=== PATIENT | male | born 1990 | race Asian ===

== ENCOUNTER 2016-10-04 11:30 | Inpatient (IN) | payer MEDICAID, OTHER ==
[~2016-10-04] VITALS: Ht 167.6 cm; Wt 83.3 kg
[~2016-10-04 11:30] MED LIST: CITA20TA9 PO; DIVA250T25 PO; RISP.5 PO
[2016-10-04 12:23] LABS: BASOPHILS % (AUTO) 0.5 % (0.0-2.0); EOSINOPHILS % (AUTO) 0.4 % (1.0-6.0); HEMATOCRIT 48.4 % (41-53); HEMOGLOBIN 15.9 g/dL (13.5-17.5); LYMPHOCYTES # (AUTO) 1.4 K/uL (1.0-4.8); LYMPHOCYTES % (AUTO) 20.7 % (22.0-44.0); MEAN CORPUSCULAR HGB CONC 32.8 G/dL (31.0-37.0); MEAN CORPUSCULAR VOLUME 88 fL (80-100); MONOCYTES # (AUTO) 0.3 K/uL (0.1-1.0); MONOCYTES % (AUTO) 4.6 % (2.0-9.0); NEUTROPHILS # (AUTO) 4.8 K/uL (1.8-7.7); NEUTROPHILS % (AUTO) 73.8 % (40.0-70.0); PLATELET COUNT (AUTO) 270 K/uL (150-450); RED BLOOD CELL COUNT(AUTO) 5.49 MIL/uL (4.50-5.90); RED CELL DISTRIBUTION WIDTH 12.7 % (11.5-14.5); WHITE BLOOD COUNT (AUTO) 6.5 K/uL (4.5-11.0)
[2016-10-04 12:40] LABS: ALANINE AMINOTRANSFERASE 32 U/L (12-78); ALBUMIN 4.3 g/dL (3.4-5.0); ANION GAP 13 mmol/L (8-16); ASPARTATE AMINOTRANSFERASE 17 U/L (15-37); BILIRUBIN,TOTAL 0.5 mg/dL (0.1-1.0); CARBON DIOXIDE 25 mmol/L (22-29); CHLORIDE 103 mmol/L (98-107); CREATININE 0.91 mg/dL (0.60-1.30); GLOMERULAR FILTR. RATE CALC > 60 mL/min (>60); POTASSIUM 3.9 mmol/L (3.5-5.1); SODIUM SERUM 141 mmol/L (136-145); TOTAL PROTEIN, SERUM 7.8 g/dL (6.4-8.2); UREA NITROGEN, BLOOD 12 mg/dL (7-18)
[2016-10-04] MEDS ORDERED: LORazepam 2 MG TABLET PO ONE ×2 (13:00→15:15)
[2016-10-04] MEDS ORDERED: ACETAMINOPHEN 325 MG TABLET PO ONE (15:15)
[2016-10-04] MEDS ORDERED: ZOLPIDEM TARTRATE 10 MG TABLET PO PRN (15:15)
[2016-10-04] MEDS ORDERED: HALOPERIDOL 5 MG TABLET PO PRN (15:15)
[2016-10-04] MEDS ORDERED: LORazepam 2 MG TABLET PO PRN (15:15)
[2016-10-04 20:32] LABS: APPEARANCE,URINE CLEAR (CLEAR); GLUCOSE, URINE (UA) NEGATIVE (NEGATIVE); KETONES,URINE NEGATIVE (NEGATIVE); LEUKOCYTE ESTERASE ,URINE NEGATIVE (NEGATIVE); OCCULT BLOOD,URINE NEGATIVE (NEGATIVE); PH,URINE 7.5 (5.0-8.0); PROTEIN,URINE NEGATIVE (NEGATIVE)
[2016-10-04 20:35] LABS: ADD UA MICROSCOPIC NO
[2016-10-04 20:45] VITALS: BP 127/86
[2016-10-04] MEDS ORDERED: INFLUENZA VIRUS VACCINE QVS 2016-17 (3YR+)/PF 60 MCG/0.5 ML SYRINGE IM ONE (22:15)
[2016-10-05 08:09] VITALS: BP 132/83
[2016-10-05] MEDS ORDERED: PETROLATUM,WHITE 71 GM JELLY TP PRN (09:15)
[2016-10-05] MEDS ORDERED: ALBUTEROL SULFATE HFA 90 MCG/PUFF 8 GM INHALER IH PRN (09:15)
[2016-10-05] MEDS ORDERED: IBUPROFEN 600 MG TABLET PO PRN (09:15)
[2016-10-05] MEDS ORDERED: CloNIDine HCL 0.1 MG TABLET PO PRN (09:15)
[2016-10-05] MEDS ORDERED: ACETAMINOPHEN 325 MG TABLET PO PRN (09:15)
[2016-10-05] MEDS ORDERED: ONDANSETRON HCL 4 MG TABLET PO PRN (09:15)
[2016-10-05] MEDS ORDERED: LOPERAMIDE HCL 2 MG CAPSULE PO PRN (09:15)
[2016-10-05] MEDS ORDERED: BENZOCAINE/MENTHOL LOZENGE [8 LOZENGES/PACKET] MM PRN (09:15)
[2016-10-05] MEDS ORDERED: MAG HYDROX/AL HYDROX/SIMETH ES 30 ML SUSPENSION UDCUP PO PRN (09:15)
[2016-10-05] MEDS ORDERED: BACITRACIN 28.4 GM OINTMENT TP PRN (09:15)
[2016-10-05] MEDS ORDERED: MAGNESIUM HYDROXIDE SUSPENSION 30 ML UDCUP PO PRN (09:15)
[2016-10-05 18:34] VITALS: BP 135/86
[2016-10-06] MEDS: CITALOPRAM HYDROBROMIDE 20 MG TABLET PO SCH (07:59)
[2016-10-06] MEDS: RisperiDONE 0.5 MG TABLET PO SCH ×2 (07:59→16:38)
[2016-10-06] MEDS: DIVALPROEX SODIUM 500 MG DR TABLET PO SCH ×2 (07:59→16:38)
[2016-10-06 08:03] VITALS: BP 138/95
[2016-10-06 16:43] VITALS: BP 133/87
[2016-10-07 06:53] LABS: BASOPHILS % (AUTO) 0.3 % (0.0-2.0); EOSINOPHILS % (AUTO) 0.6 % (1.0-6.0); HEMATOCRIT 46.6 % (41-53); HEMOGLOBIN 15.5 g/dL (13.5-17.5); LYMPHOCYTES # (AUTO) 1.9 K/uL (1.0-4.8); LYMPHOCYTES % (AUTO) 23.6 % (22.0-44.0); MEAN CORPUSCULAR HEMOGLOBIN 29.5 pg (26.0-34.0); MEAN CORPUSCULAR HGB CONC 33.3 G/dL (31.0-37.0); MEAN CORPUSCULAR VOLUME 89 fL (80-100); MONOCYTES # (AUTO) 0.3 K/uL (0.1-1.0); MONOCYTES % (AUTO) 3.5 % (2.0-9.0); NEUTROPHILS # (AUTO) 5.9 K/uL (1.8-7.7); PLATELET COUNT (AUTO) 272 K/uL (150-450); RED BLOOD CELL COUNT(AUTO) 5.26 MIL/uL (4.50-5.90); RED CELL DISTRIBUTION WIDTH 12.3 % (11.5-14.5); WHITE BLOOD COUNT (AUTO) 8.2 K/uL (4.5-11.0)
[2016-10-07 07:04] LABS: ALANINE AMINOTRANSFERASE 28 U/L (12-78); ALBUMIN 3.9 g/dL (3.4-5.0); ANION GAP 8 mmol/L (8-16); ASPARTATE AMINOTRANSFERASE 11 U/L (15-37); BILIRUBIN,TOTAL 0.7 mg/dL (0.1-1.0); CALCIUM, TOTAL 8.7 mg/dL (8.8-10.5); CARBON DIOXIDE 28 mmol/L (22-29); CHLORIDE 105 mmol/L (98-107); CREATININE 0.93 mg/dL (0.60-1.30); GLOMERULAR FILTR. RATE CALC > 60 mL/min (>60); POTASSIUM 4.2 mmol/L (3.5-5.1); SODIUM SERUM 141 mmol/L (136-145); TOTAL PROTEIN, SERUM 7.3 g/dL (6.4-8.2); UREA NITROGEN, BLOOD 16 mg/dL (7-18); VALPROIC ACID 23 mcg/mL (50-100)
[2016-10-07 09:00] VITALS: BP 134/72
[2016-10-07] MEDS: DIVALPROEX SODIUM 500 MG DR TABLET PO SCH ×2 (10:01→16:21)
[2016-10-07] MEDS: RisperiDONE 0.5 MG TABLET PO SCH ×2 (10:01→16:21)
[2016-10-07] MEDS: CITALOPRAM HYDROBROMIDE 20 MG TABLET PO SCH (10:01)
[2016-10-07 16:43] VITALS: BP 127/87
[2016-10-08 08:14] VITALS: BP 138/88
[2016-10-08] MEDS: RisperiDONE 0.5 MG TABLET PO SCH ×2 (11:08→16:39)
[2016-10-08] MEDS: CITALOPRAM HYDROBROMIDE 20 MG TABLET PO SCH (11:08)
[2016-10-08] MEDS: DIVALPROEX SODIUM 500 MG DR TABLET PO SCH ×2 (11:08→16:39)
[2016-10-08 16:00] VITALS: BP 129/78
[2016-10-09 08:16] VITALS: BP 108/67
[2016-10-09] MEDS: CITALOPRAM HYDROBROMIDE 20 MG TABLET PO SCH (09:01)
[2016-10-09] MEDS: DIVALPROEX SODIUM 500 MG DR TABLET PO SCH ×2 (09:01→17:40)
[2016-10-09] MEDS: RisperiDONE 0.5 MG TABLET PO SCH ×2 (09:01→17:40)
[2016-10-09 16:33] VITALS: BP 115/70
[2016-10-10] MEDS: DIVALPROEX SODIUM 500 MG DR TABLET PO SCH (08:53)
[2016-10-10] MEDS: RisperiDONE 0.5 MG TABLET PO SCH (08:54)
[2016-10-10] MEDS: CITALOPRAM HYDROBROMIDE 20 MG TABLET PO SCH (08:54)
[2016-10-10 10:32] VITALS: BP 123/79
[2016-10-10 11:35] VITALS: BP 120/68
== END 2016-10-10 12:45 | disposition home or self-care (01) | DRG 750 ==
LOC: EEVIPCON 11:30 → EMS 11:32 → 3EC 20:13
PROVIDERS: ADMIT Psychiatry & Neurology Psychiatry; ATTEND Psychiatry & Neurology Psychiatry
DX: F25.9 Schizoaffective disorder, unspecified (principal); R45.851 Suicidal ideations; F79 Unspecified intellectual disabilities; F32.9 Major depressive disorder, single episode, unspecified; F94.0 Selective mutism; J45.909 Unspecified asthma, uncomplicated; K59.00 Constipation, unspecified; S60.812A Abrasion of left wrist, initial encounter; F41.9 Anxiety disorder, unspecified; X58.XXXA Exposure to other specified factors, initial encounter; Z91.19 Patient's noncompliance with other medical treatment and regimen; Z79.899 Other long term (current) drug therapy; Z56.0 Unemployment, unspecified; Y93.89 Activity, other specified; Y92.89 Other specified places as the place of occurrence of the external cause; Y99.8 Other external cause status; Z28.21 Immunization not carried out because of patient refusal
CPT/HCPCS: 82306; 99285; G0480

== ENCOUNTER 2017-10-10 14:39 | Inpatient (IN) | payer MEDICAID, OTHER ==
[~2017-10-10] VITALS: Ht 167.6 cm; Wt 94.1 kg
[2017-10-10 15:08] LABS: BASOPHILS % (AUTO) 0.4 % (0.0-2.0); EOSINOPHILS % (AUTO) 0.4 % (1.0-6.0); HEMATOCRIT 48.7 % (41-53); HEMOGLOBIN 16.8 g/dL (13.5-17.5); LYMPHOCYTES # (AUTO) 1.5 K/uL (1.0-4.8); LYMPHOCYTES % (AUTO) 21.4 % (22.0-44.0); MEAN CORPUSCULAR HEMOGLOBIN 30.4 pg (26.0-34.0); MEAN CORPUSCULAR HGB CONC 34.5 G/dL (31.0-37.0); MEAN CORPUSCULAR VOLUME 88 fL (80-100); MONOCYTES # (AUTO) 0.4 K/uL (0.1-1.0); MONOCYTES % (AUTO) 5.5 % (2.0-9.0); NEUTROPHILS # (AUTO) 5.1 K/uL (1.8-7.7); NEUTROPHILS % (AUTO) 72.3 % (40.0-70.0); PLATELET COUNT (AUTO) 181 K/uL (150-450); RED BLOOD CELL COUNT(AUTO) 5.51 MIL/uL (4.50-5.90); RED CELL DISTRIBUTION WIDTH 12.5 % (11.5-14.5)
[2017-10-10 15:15] LABS: ANION GAP 10 mmol/L (8-16); CALCIUM, TOTAL 9.5 mg/dL (8.8-10.5); CARBON DIOXIDE 29 mmol/L (22-29); CHLORIDE 102 mmol/L (98-107); CREATININE 0.93 mg/dL (0.60-1.30); GLOMERULAR FILTR. RATE CALC > 60 mL/min (>60); GLUCOSE,RANDOM 104 mg/dL (70-110); POTASSIUM 3.8 mmol/L (3.5-5.1); SODIUM SERUM 141 mmol/L (136-145); UREA NITROGEN, BLOOD 14 mg/dL (7-18)
[2017-10-10 15:21] LABS: ALANINE AMINOTRANSFERASE 64 U/L (12-78); ALBUMIN 4.5 g/dL (3.4-5.0); ALKALINE PHOSPHATASE 87 U/L (46-116); ASPARTATE AMINOTRANSFERASE 31 U/L (15-37); BILIRUBIN,TOTAL 0.7 mg/dL (0.1-1.0); VALPROIC ACID 80 mcg/mL (50-100)
[2017-10-10] MEDS ORDERED: DiphenhydrAMINE HCL 25 MG CAPSULE PO ONE (15:45)
[2017-10-10] MEDS ORDERED: HALOPERIDOL 5 MG TABLET PO ONE (15:45)
[2017-10-10] MEDS ORDERED: LORazepam 2 MG TABLET PO ONE (15:45)
[2017-10-10] MEDS ORDERED: ZOLPIDEM TARTRATE 10 MG TABLET PO PRN (16:30)
[2017-10-10 16:52] LABS: CHOL/HDL RATIO 5.3 (4.2-7.3); CHOLESTEROL 195 mg/dL (131-200); FREE T4 (FREE THYROXINE) 1.02 ng/dL (0.76-1.46); HDL CHOLESTEROL 37 mg/dL (40-60); LDL CHOL (CALC.) 120 mg/dL (0-130); THYROID STIMULATING HORMONE 0.57 uIU/mL (0.36-3.74); TRIGLYCERIDES 192 mg/dL (15-150)
[2017-10-10] MEDS: DIVALPROEX SODIUM 500 MG ER TABLET PO SCH (17:46)
[2017-10-10] MEDS: RisperiDONE 0.5 MG TABLET PO SCH (17:46)
[2017-10-10] MEDS: GABAPENTIN 300 MG CAPSULE PO SCH (17:46)
[2017-10-10 18:00] VITALS: BP 129/78
[2017-10-10 20:43] LABS: AMPHET/METH SCREEN,URINE NEGATIVE (NEGATIVE); BARBITURATE SCREEN, URINE NEGATIVE (NEGATIVE); BENZODIAZEPINES SCREEN,URINE NEGATIVE (NEGATIVE); CANNABINOID SCREEN,URINE NEGATIVE (NEGATIVE); COCAINE SCREEN,URINE NEGATIVE (NEGATIVE); METHADONE SCREEN, URINE NEGATIVE (NEGATIVE); OPIATE SCREEN,URINE NEGATIVE (NEGATIVE); PHENCYCLIDINE SCREEN,URINE NEGATIVE (NEGATIVE)
[2017-10-10 20:46] LABS: APPEARANCE,URINE TURBID (CLEAR); BILIRUBIN,URINE NEGATIVE (NEGATIVE); GLUCOSE, URINE (UA) NEGATIVE (NEGATIVE); KETONES,URINE 15 mg/dL (NEGATIVE); LEUKOCYTE ESTERASE ,URINE NEGATIVE (NEGATIVE); NITRATE,URINE NEGATIVE (NEGATIVE); OCCULT BLOOD,URINE NEGATIVE (NEGATIVE); PH,URINE 7.5 (5.0-8.0); PROTEIN,URINE NEGATIVE (NEGATIVE)
[2017-10-11 08:53] VITALS: BP 126/81
[2017-10-11] MEDS: DIVALPROEX SODIUM 500 MG ER TABLET PO SCH ×2 (09:13→17:15)
[2017-10-11] MEDS: GABAPENTIN 300 MG CAPSULE PO SCH ×3 (09:13→17:15)
[2017-10-11] MEDS: RisperiDONE 0.5 MG TABLET PO SCH ×2 (09:13→17:15)
[2017-10-11 17:57] VITALS: BP 123/88
[2017-10-12 09:12] VITALS: BP 112/79
[2017-10-12] MEDS: LORazepam 2 MG TABLET PO PRN (09:26)
[2017-10-12] MEDS: HALOPERIDOL 5 MG TABLET PO PRN (09:26)
[2017-10-12] MEDS: RisperiDONE 0.5 MG TABLET PO SCH ×2 (09:26→16:30)
[2017-10-12] MEDS: GABAPENTIN 300 MG CAPSULE PO SCH ×3 (09:26→16:32)
[2017-10-12] MEDS: DIVALPROEX SODIUM 500 MG ER TABLET PO SCH ×2 (09:26→16:30)
[2017-10-12 16:47] VITALS: BP 95/60
[2017-10-13 09:20] VITALS: BP 106/62
[2017-10-13] MEDS: GABAPENTIN 300 MG CAPSULE PO SCH ×3 (09:36→17:35)
[2017-10-13] MEDS: DIVALPROEX SODIUM 500 MG ER TABLET PO SCH ×2 (09:36→17:35)
[2017-10-13] MEDS: RisperiDONE 0.5 MG TABLET PO SCH ×2 (09:36→17:35)
[2017-10-13] MEDS: LORazepam 2 MG TABLET PO PRN (09:55)
[2017-10-13] MEDS: HALOPERIDOL 5 MG TABLET PO PRN (09:55)
[2017-10-13 16:23] VITALS: BP 105/67
[2017-10-14 08:00] VITALS: BP 116/71
[2017-10-14] MEDS: GABAPENTIN 300 MG CAPSULE PO SCH ×3 (08:11→17:14)
[2017-10-14] MEDS: RisperiDONE 0.5 MG TABLET PO SCH ×2 (08:11→17:14)
[2017-10-14] MEDS: LORazepam 2 MG TABLET PO PRN (08:12)
[2017-10-14] MEDS: HALOPERIDOL 5 MG TABLET PO PRN (08:12)
[2017-10-14] MEDS: DIVALPROEX SODIUM 500 MG ER TABLET PO SCH ×2 (08:12→17:14)
[2017-10-14 20:27] VITALS: BP 114/66
[2017-10-15 09:00] VITALS: BP 99/65
[2017-10-15] MEDS: RisperiDONE 0.5 MG TABLET PO SCH ×2 (09:53→17:41)
[2017-10-15] MEDS: DIVALPROEX SODIUM 500 MG ER TABLET PO SCH ×2 (09:53→17:41)
[2017-10-15] MEDS: GABAPENTIN 300 MG CAPSULE PO SCH ×3 (09:53→17:41)
[2017-10-15] MEDS: LORazepam 2 MG TABLET PO PRN (10:25)
[2017-10-15 22:53] VITALS: BP 125/71
[2017-10-16 08:00] VITALS: BP 101/80
[2017-10-16] MEDS: GABAPENTIN 300 MG CAPSULE PO SCH ×3 (09:32→17:44)
[2017-10-16] MEDS: RisperiDONE 0.5 MG TABLET PO SCH ×2 (09:32→17:44)
[2017-10-16] MEDS: DIVALPROEX SODIUM 500 MG ER TABLET PO SCH ×2 (09:32→17:44)
[2017-10-16 16:39] VITALS: BP 122/69
[2017-10-17 08:00] VITALS: BP 119/72
[2017-10-17] MEDS: DIVALPROEX SODIUM 500 MG ER TABLET PO SCH ×2 (10:00→17:37)
[2017-10-17] MEDS: GABAPENTIN 300 MG CAPSULE PO SCH ×3 (10:00→17:36)
[2017-10-17] MEDS: RisperiDONE 0.5 MG TABLET PO SCH ×2 (10:00→17:36)
[2017-10-17 20:51] VITALS: BP 122/77
[2017-10-18 08:00] VITALS: BP 100/79
[2017-10-18] MEDS: GABAPENTIN 300 MG CAPSULE PO SCH ×2 (09:23→12:33)
[2017-10-18] MEDS: DIVALPROEX SODIUM 500 MG ER TABLET PO SCH (09:23)
[2017-10-18] MEDS: RisperiDONE 0.5 MG TABLET PO SCH (09:23)
[2017-10-18] MEDS ORDERED: GABA-531 PO (13:33)
[2017-10-22] MEDS ORDERED: DIVA500T35 PO (18:18)
[2017-11-01] MEDS ORDERED: HALO5 PO (14:26)
[2017-11-01] MEDS ORDERED: BENZ1TAB10 PO (14:26)
== END 2017-10-18 16:00 | disposition home or self-care (01) | DRG 750 ==
LOC: EMS 14:41 → 3EI 17:22
PROVIDERS: ADMIT Psychiatry & Neurology Psychiatry; ATTEND Psychiatry & Neurology Psychiatry
DX: F20.0 Paranoid schizophrenia (principal); R45.851 Suicidal ideations; E78.1 Pure hyperglyceridemia; F63.3 Trichotillomania; R25.8 Other abnormal involuntary movements; Z79.899 Other long term (current) drug therapy
CPT/HCPCS: 84439; 84443; 99285; G0480

== ENCOUNTER 2017-11-03 21:57 | Inpatient (IN) | payer MEDICAID, OTHER ==
[~2017-11-03] VITALS: Ht 170.2 cm; Wt 93.6 kg
[~2017-11-03 21:57] MED LIST changes: +BENZ1TAB10 PO; -CITA20TA9 PO; -DIVA250T25 PO; +DIVA500T35 PO; +GABA-531 PO; +HALO5 PO
[2017-11-03 22:51] LABS: BASOPHILS % (AUTO) 0.7 % (0.0-2.0); EOSINOPHILS % (AUTO) 1.4 % (1.0-6.0); HEMATOCRIT 47.3 % (41-53); HEMOGLOBIN 16.3 g/dL (13.5-17.5); LYMPHOCYTES # (AUTO) 2.3 K/uL (1.0-4.8); LYMPHOCYTES % (AUTO) 29.5 % (22.0-44.0); MEAN CORPUSCULAR HEMOGLOBIN 30.1 pg (26.0-34.0); MEAN CORPUSCULAR HGB CONC 34.5 G/dL (31.0-37.0); MEAN CORPUSCULAR VOLUME 87 fL (80-100); MONOCYTES # (AUTO) 0.5 K/uL (0.1-1.0); MONOCYTES % (AUTO) 6.3 % (2.0-9.0); NEUTROPHILS # (AUTO) 4.9 K/uL (1.8-7.7); NEUTROPHILS % (AUTO) 62.1 % (40.0-70.0); PLATELET COUNT (AUTO) 214 K/uL (150-450); RED BLOOD CELL COUNT(AUTO) 5.43 MIL/uL (4.50-5.90); RED CELL DISTRIBUTION WIDTH 13.1 % (11.5-14.5)
[2017-11-03 22:51] LABS: AMPHET/METH SCREEN,URINE NEGATIVE (NEGATIVE); BARBITURATE SCREEN, URINE NEGATIVE (NEGATIVE); BENZODIAZEPINES SCREEN,URINE NEGATIVE (NEGATIVE); CANNABINOID SCREEN,URINE NEGATIVE (NEGATIVE); COCAINE SCREEN,URINE NEGATIVE (NEGATIVE); METHADONE SCREEN, URINE NEGATIVE (NEGATIVE); OPIATE SCREEN,URINE NEGATIVE (NEGATIVE); PHENCYCLIDINE SCREEN,URINE NEGATIVE (NEGATIVE)
[2017-11-03 22:59] LABS: ANION GAP 8 mmol/L (8-16); CALCIUM, TOTAL 8.9 mg/dL (8.8-10.5); CARBON DIOXIDE 30 mmol/L (22-29); CHLORIDE 104 mmol/L (98-107); CREATININE 1.06 mg/dL (0.60-1.30); GLOMERULAR FILTR. RATE CALC > 60 mL/min (>60); GLUCOSE,RANDOM 100 mg/dL (70-110); POTASSIUM 4.2 mmol/L (3.5-5.1); SODIUM SERUM 142 mmol/L (136-145); UREA NITROGEN, BLOOD 13 mg/dL (7-18)
[2017-11-03 23:05] LABS: ALANINE AMINOTRANSFERASE 50 U/L (12-78); ALBUMIN 3.9 g/dL (3.4-5.0); ALKALINE PHOSPHATASE 78 U/L (46-116); ASPARTATE AMINOTRANSFERASE 18 U/L (15-37); BILIRUBIN,TOTAL 0.4 mg/dL (0.1-1.0); TOTAL PROTEIN, SERUM 7.2 g/dL (6.4-8.2)
[2017-11-04] MEDS ORDERED: DiphenhydrAMINE HCL 25 MG CAPSULE PO ONE (02:15)
[2017-11-04] MEDS ORDERED: HALOPERIDOL 5 MG TABLET PO ONE (02:15)
[2017-11-04] MEDS: LORazepam 2 MG TABLET PO PRN ×3 (10:08→21:06)
[2017-11-04] MEDS: HALOPERIDOL 5 MG TABLET PO PRN ×3 (10:08→21:06)
[2017-11-04 19:45] VITALS: BP 128/81
[2017-11-04] MEDS ORDERED: INFLUENZA VIRUS VACCINE QVS 2017-18 (3YR+)/PF 60 MCG/0.5 ML SYRINGE IM ONE (20:30)
[2017-11-05 09:32] VITALS: BP 117/70
[2017-11-05] MEDS: HALOPERIDOL 5 MG TABLET PO PRN (12:45)
[2017-11-05] MEDS: LORazepam 2 MG TABLET PO PRN ×2 (12:45→22:33)
[2017-11-05] MEDS ORDERED: RISP3 PO (15:28)
[2017-11-05] MEDS: DIVALPROEX SODIUM 500 MG DR TABLET PO SCH (17:36)
[2017-11-05] MEDS: GABAPENTIN 300 MG CAPSULE PO SCH (17:36)
[2017-11-05] MEDS: RisperiDONE 3 MG TABLET PO SCH (17:36)
[2017-11-05] MEDS: BENZTROPINE MESYLATE 1 MG TABLET PO SCH (17:36)
[2017-11-05 19:42] VITALS: BP 123/68
[2017-11-05] MEDS: ZOLPIDEM TARTRATE 10 MG TABLET PO PRN (22:33)
[2017-11-06 09:01] VITALS: BP 143/76
[2017-11-06] MEDS: RisperiDONE 3 MG TABLET PO SCH ×2 (09:43→16:18)
[2017-11-06] MEDS: GABAPENTIN 300 MG CAPSULE PO SCH ×3 (09:43→16:18)
[2017-11-06] MEDS: BENZTROPINE MESYLATE 1 MG TABLET PO SCH ×2 (09:43→16:18)
[2017-11-06] MEDS: DIVALPROEX SODIUM 500 MG DR TABLET PO SCH ×2 (09:43→16:18)
[2017-11-06 16:55] VITALS: BP 119/78
[2017-11-07 08:05] VITALS: BP 109/73
[2017-11-07] MEDS: DIVALPROEX SODIUM 500 MG DR TABLET PO SCH ×2 (09:03→16:24)
[2017-11-07] MEDS: GABAPENTIN 300 MG CAPSULE PO SCH ×3 (09:03→16:25)
[2017-11-07] MEDS: RisperiDONE 3 MG TABLET PO SCH ×2 (09:03→16:24)
[2017-11-07] MEDS: BENZTROPINE MESYLATE 1 MG TABLET PO SCH ×2 (09:03→16:24)
[2017-11-07 17:25] VITALS: BP 107/66
[2017-11-08] MEDS: DIVALPROEX SODIUM 500 MG DR TABLET PO SCH ×2 (09:43→16:13)
[2017-11-08] MEDS: RisperiDONE 3 MG TABLET PO SCH ×2 (09:43→16:13)
[2017-11-08] MEDS: BENZTROPINE MESYLATE 1 MG TABLET PO SCH ×2 (09:43→16:13)
[2017-11-08] MEDS: GABAPENTIN 300 MG CAPSULE PO SCH ×3 (09:44→16:13)
[2017-11-08] MEDS: HALOPERIDOL 5 MG TABLET PO PRN (12:36)
[2017-11-08] MEDS: LORazepam 2 MG TABLET PO PRN (12:36)
[2017-11-08 12:47] VITALS: BP 115/75
[2017-11-08 12:51] VITALS: BP 115/75
[2017-11-08 17:30] VITALS: BP 128/78
[2017-11-09 09:30] VITALS: BP 99/76
[2017-11-09] MEDS: LORazepam 2 MG TABLET PO PRN (11:36)
[2017-11-09] MEDS: GABAPENTIN 300 MG CAPSULE PO SCH ×3 (11:36→16:43)
[2017-11-09] MEDS: BENZTROPINE MESYLATE 1 MG TABLET PO SCH ×2 (11:36→16:43)
[2017-11-09] MEDS: HALOPERIDOL 5 MG TABLET PO PRN (11:36)
[2017-11-09] MEDS: RisperiDONE 3 MG TABLET PO SCH ×2 (11:36→16:43)
[2017-11-09] MEDS: DIVALPROEX SODIUM 500 MG DR TABLET PO SCH ×2 (11:36→16:43)
[2017-11-09 16:25] VITALS: BP 126/80
[2017-11-10] MEDS: GABAPENTIN 300 MG CAPSULE PO SCH ×3 (08:34→17:05)
[2017-11-10] MEDS: RisperiDONE 3 MG TABLET PO SCH ×2 (08:35→17:05)
[2017-11-10] MEDS: DIVALPROEX SODIUM 500 MG DR TABLET PO SCH ×2 (08:35→17:05)
[2017-11-10] MEDS: BENZTROPINE MESYLATE 1 MG TABLET PO SCH ×2 (08:35→17:05)
[2017-11-10] MEDS: HALOPERIDOL 5 MG TABLET PO PRN ×3 (12:09→21:31)
[2017-11-10] MEDS: LORazepam 2 MG TABLET PO PRN ×2 (12:09→20:20)
[2017-11-10 12:49] VITALS: BP 124/98
[2017-11-10 19:31] VITALS: BP 111/78
[2017-11-10] MEDS: ZOLPIDEM TARTRATE 10 MG TABLET PO PRN (21:31)
[2017-11-11] MEDS: RisperiDONE 3 MG TABLET PO SCH ×2 (08:35→17:23)
[2017-11-11] MEDS: GABAPENTIN 300 MG CAPSULE PO SCH ×3 (08:35→17:23)
[2017-11-11] MEDS: DIVALPROEX SODIUM 500 MG DR TABLET PO SCH ×2 (08:35→17:23)
[2017-11-11] MEDS: BENZTROPINE MESYLATE 1 MG TABLET PO SCH ×2 (08:35→17:23)
[2017-11-11 08:41] VITALS: BP 101/68
[2017-11-11] MEDS: LORazepam 2 MG TABLET PO PRN (11:36)
[2017-11-11] MEDS: HALOPERIDOL 5 MG TABLET PO PRN (11:36)
[2017-11-11 21:17] VITALS: BP 132/76
[2017-11-11] MEDS: ZOLPIDEM TARTRATE 10 MG TABLET PO PRN (21:43)
[2017-11-12 09:55] VITALS: BP 118/76
[2017-11-12] MEDS: BENZTROPINE MESYLATE 1 MG TABLET PO SCH ×2 (10:56→16:34)
[2017-11-12] MEDS: DIVALPROEX SODIUM 500 MG DR TABLET PO SCH ×2 (10:56→16:33)
[2017-11-12] MEDS: HALOPERIDOL 5 MG TABLET PO PRN ×2 (10:56→15:02)
[2017-11-12] MEDS: RisperiDONE 3 MG TABLET PO SCH ×2 (10:56→16:33)
[2017-11-12] MEDS: GABAPENTIN 300 MG CAPSULE PO SCH ×3 (10:56→16:33)
[2017-11-12] MEDS: LORazepam 2 MG TABLET PO PRN ×2 (10:56→15:01)
[2017-11-12 18:37] VITALS: BP 124/88
[2017-11-13 08:00] VITALS: BP 103/49
[2017-11-13] MEDS: GABAPENTIN 300 MG CAPSULE PO SCH ×3 (09:37→17:43)
[2017-11-13] MEDS: SERTRALINE HCL 50 MG TABLET PO SCH (09:37)
[2017-11-13] MEDS: BENZTROPINE MESYLATE 1 MG TABLET PO SCH ×2 (09:37→17:42)
[2017-11-13] MEDS: DIVALPROEX SODIUM 500 MG DR TABLET PO SCH ×2 (09:37→17:42)
[2017-11-13] MEDS: RisperiDONE 3 MG TABLET PO SCH ×2 (09:37→17:42)
[2017-11-13] MEDS: RisperiDONE MICROSPHERES 50 MG/2 ML SYRINGE IM SCH (09:38)
[2017-11-13] MEDS: LORazepam 2 MG TABLET PO PRN (09:39)
[2017-11-13] MEDS: HALOPERIDOL 5 MG TABLET PO PRN (09:39)
[2017-11-13 17:30] VITALS: BP 124/82
[2017-11-14 08:00] VITALS: BP 106/71
[2017-11-14] MEDS: RisperiDONE 3 MG TABLET PO SCH ×2 (10:58→16:54)
[2017-11-14] MEDS: BENZTROPINE MESYLATE 1 MG TABLET PO SCH ×2 (10:58→16:53)
[2017-11-14] MEDS: GABAPENTIN 300 MG CAPSULE PO SCH ×3 (10:58→16:53)
[2017-11-14] MEDS: HALOPERIDOL 5 MG TABLET PO PRN (10:58)
[2017-11-14] MEDS: LORazepam 2 MG TABLET PO PRN (10:58)
[2017-11-14] MEDS: DIVALPROEX SODIUM 500 MG DR TABLET PO SCH ×2 (10:58→16:53)
[2017-11-14] MEDS: SERTRALINE HCL 50 MG TABLET PO SCH (10:58)
[2017-11-14 18:06] VITALS: BP 124/75
[2017-11-15 08:00] VITALS: BP 103/61
[2017-11-15] MEDS: RisperiDONE 3 MG TABLET PO SCH ×2 (09:28→17:28)
[2017-11-15] MEDS: BENZTROPINE MESYLATE 1 MG TABLET PO SCH ×2 (09:28→17:28)
[2017-11-15] MEDS: GABAPENTIN 300 MG CAPSULE PO SCH ×3 (09:29→17:28)
[2017-11-15] MEDS: DIVALPROEX SODIUM 500 MG DR TABLET PO SCH ×2 (09:29→17:28)
[2017-11-15] MEDS: SERTRALINE HCL 50 MG TABLET PO SCH (09:29)
[2017-11-15] MEDS: LORazepam 2 MG TABLET PO PRN ×2 (11:34→18:00)
[2017-11-15] MEDS: HALOPERIDOL 5 MG TABLET PO PRN ×2 (11:34→18:00)
[2017-11-15 16:30] VITALS: BP 125/79
[2017-11-16 08:00] VITALS: BP 137/93
[2017-11-16] MEDS: SERTRALINE HCL 50 MG TABLET PO SCH (09:58)
[2017-11-16] MEDS: GABAPENTIN 300 MG CAPSULE PO SCH ×3 (09:58→17:36)
[2017-11-16] MEDS: DIVALPROEX SODIUM 500 MG DR TABLET PO SCH ×2 (09:58→17:36)
[2017-11-16] MEDS: BENZTROPINE MESYLATE 1 MG TABLET PO SCH ×2 (09:58→17:36)
[2017-11-16] MEDS: RisperiDONE 3 MG TABLET PO SCH ×2 (09:58→17:36)
[2017-11-16] MEDS: LORazepam 2 MG TABLET PO PRN (12:08)
[2017-11-16] MEDS: HALOPERIDOL 5 MG TABLET PO PRN (12:08)
[2017-11-17 08:00] VITALS: BP 125/86
[2017-11-17] MEDS: GABAPENTIN 300 MG CAPSULE PO SCH ×3 (11:08→16:25)
[2017-11-17] MEDS: RisperiDONE 3 MG TABLET PO SCH ×2 (11:08→16:25)
[2017-11-17] MEDS: BENZTROPINE MESYLATE 1 MG TABLET PO SCH ×2 (11:08→16:25)
[2017-11-17] MEDS: DIVALPROEX SODIUM 500 MG DR TABLET PO SCH ×2 (11:08→16:25)
[2017-11-17] MEDS: SERTRALINE HCL 50 MG TABLET PO SCH (11:08)
[2017-11-17 16:22] VITALS: BP 115/69
[2017-11-17] MEDS: HALOPERIDOL 5 MG TABLET PO PRN (20:37)
[2017-11-17] MEDS: LORazepam 2 MG TABLET PO PRN (20:38)
[2017-11-18] MEDS: GABAPENTIN 300 MG CAPSULE PO SCH ×3 (09:40→17:01)
[2017-11-18] MEDS: BENZTROPINE MESYLATE 1 MG TABLET PO SCH ×2 (09:40→17:01)
[2017-11-18] MEDS: RisperiDONE 3 MG TABLET PO SCH ×2 (09:41→17:01)
[2017-11-18] MEDS: DIVALPROEX SODIUM 500 MG DR TABLET PO SCH ×2 (09:41→17:01)
[2017-11-18] MEDS: SERTRALINE HCL 50 MG TABLET PO SCH (09:41)
[2017-11-18 10:57] VITALS: BP 113/77
[2017-11-18] MEDS: LORazepam 2 MG TABLET PO PRN (11:11)
[2017-11-18] MEDS: HALOPERIDOL 5 MG TABLET PO PRN (11:11)
[2017-11-19 08:00] VITALS: BP 124/80
[2017-11-19] MEDS: SERTRALINE HCL 50 MG TABLET PO SCH (09:44)
[2017-11-19] MEDS: DIVALPROEX SODIUM 500 MG DR TABLET PO SCH ×2 (09:44→16:53)
[2017-11-19] MEDS: BENZTROPINE MESYLATE 1 MG TABLET PO SCH ×2 (09:44→16:53)
[2017-11-19] MEDS: GABAPENTIN 300 MG CAPSULE PO SCH ×3 (09:45→16:53)
[2017-11-19] MEDS: RisperiDONE 3 MG TABLET PO SCH ×2 (09:45→16:53)
[2017-11-19] MEDS: HALOPERIDOL 5 MG TABLET PO PRN (11:12)
[2017-11-19] MEDS: LORazepam 2 MG TABLET PO PRN (11:13)
[2017-11-19 19:22] VITALS: BP 134/79
[2017-11-20 08:00] VITALS: BP 136/77
[2017-11-20] MEDS: SERTRALINE HCL 50 MG TABLET PO SCH (08:35)
[2017-11-20] MEDS: GABAPENTIN 300 MG CAPSULE PO SCH ×3 (08:35→17:57)
[2017-11-20] MEDS: RisperiDONE 3 MG TABLET PO SCH ×2 (08:35→17:51)
[2017-11-20] MEDS: DIVALPROEX SODIUM 500 MG DR TABLET PO SCH ×2 (08:35→17:55)
[2017-11-20] MEDS: BENZTROPINE MESYLATE 1 MG TABLET PO SCH ×2 (08:39→17:49)
[2017-11-20] MEDS: LORazepam 2 MG TABLET PO PRN (17:50)
[2017-11-20] MEDS: HALOPERIDOL 5 MG TABLET PO PRN (17:50)
[2017-11-20 18:52] VITALS: BP 102/57
[2017-11-20] MEDS: ZOLPIDEM TARTRATE 10 MG TABLET PO PRN (21:50)
[2017-11-21 08:00] VITALS: BP 114/71
[2017-11-21] MEDS: RisperiDONE 3 MG TABLET PO SCH ×2 (10:16→17:44)
[2017-11-21] MEDS: GABAPENTIN 300 MG CAPSULE PO SCH ×3 (10:16→17:44)
[2017-11-21] MEDS: SERTRALINE HCL 50 MG TABLET PO SCH (10:16)
[2017-11-21] MEDS: BENZTROPINE MESYLATE 1 MG TABLET PO SCH ×2 (10:16→17:44)
[2017-11-21] MEDS: DIVALPROEX SODIUM 500 MG DR TABLET PO SCH ×2 (10:17→17:44)
[2017-11-21] MEDS: HALOPERIDOL 5 MG TABLET PO PRN (17:44)
[2017-11-21] MEDS: LORazepam 2 MG TABLET PO PRN (18:56)
[2017-11-21 22:10] VITALS: BP 108/70
[2017-11-22 08:00] VITALS: BP 113/78
[2017-11-22] MEDS: DIVALPROEX SODIUM 500 MG DR TABLET PO SCH ×2 (09:02→16:08)
[2017-11-22] MEDS: SERTRALINE HCL 50 MG TABLET PO SCH (09:02)
[2017-11-22] MEDS: BENZTROPINE MESYLATE 1 MG TABLET PO SCH ×2 (09:02→16:07)
[2017-11-22] MEDS: GABAPENTIN 300 MG CAPSULE PO SCH ×3 (09:02→16:07)
[2017-11-22] MEDS: RisperiDONE 3 MG TABLET PO SCH ×2 (09:02→16:08)
[2017-11-22] MEDS: HALOPERIDOL 5 MG TABLET PO PRN (16:07)
[2017-11-22 17:14] VITALS: BP 126/97
[2017-11-23 08:52] VITALS: BP 92/59
[2017-11-23] MEDS: BENZTROPINE MESYLATE 1 MG TABLET PO SCH ×2 (09:23→16:48)
[2017-11-23] MEDS: RisperiDONE 3 MG TABLET PO SCH ×2 (09:23→16:48)
[2017-11-23] MEDS: SERTRALINE HCL 50 MG TABLET PO SCH (09:23)
[2017-11-23] MEDS: DIVALPROEX SODIUM 500 MG DR TABLET PO SCH ×2 (09:23→16:48)
[2017-11-23] MEDS: GABAPENTIN 300 MG CAPSULE PO SCH ×3 (09:23→16:48)
[2017-11-23 22:15] VITALS: BP 101/63
[2017-11-24] MEDS: RisperiDONE 3 MG TABLET PO SCH ×2 (09:11→16:21)
[2017-11-24] MEDS: DIVALPROEX SODIUM 500 MG DR TABLET PO SCH ×2 (09:11→16:21)
[2017-11-24] MEDS: BENZTROPINE MESYLATE 1 MG TABLET PO SCH ×2 (09:11→16:21)
[2017-11-24] MEDS: SERTRALINE HCL 50 MG TABLET PO SCH (09:11)
[2017-11-24] MEDS: GABAPENTIN 300 MG CAPSULE PO SCH ×3 (09:11→16:21)
[2017-11-24 09:58] VITALS: BP 138/88
[2017-11-24 17:00] VITALS: BP 138/86
[2017-11-25] MEDS: HALOPERIDOL 5 MG TABLET PO PRN (08:59)
[2017-11-25] MEDS: LORazepam 2 MG TABLET PO PRN (08:59)
[2017-11-25] MEDS: BENZTROPINE MESYLATE 1 MG TABLET PO SCH ×2 (08:59→17:24)
[2017-11-25] MEDS: DIVALPROEX SODIUM 500 MG DR TABLET PO SCH ×2 (08:59→17:25)
[2017-11-25] MEDS: GABAPENTIN 300 MG CAPSULE PO SCH ×3 (08:59→17:24)
[2017-11-25] MEDS: RisperiDONE 3 MG TABLET PO SCH ×2 (09:00→17:24)
[2017-11-25] MEDS: SERTRALINE HCL 50 MG TABLET PO SCH (09:00)
[2017-11-25 09:39] VITALS: BP 138/92
[2017-11-25 09:42] VITALS: BP 138/92
[2017-11-25] MEDS: GuaiFENesin [SUGAR-FREE] 200 MG/10 ML SOLUTION UDCUP PO PRN (17:26)
[2017-11-25 19:31] VITALS: BP 112/72
[2017-11-25] MEDS: ZOLPIDEM TARTRATE 10 MG TABLET PO PRN (20:15)
[2017-11-26] MEDS: BENZTROPINE MESYLATE 1 MG TABLET PO SCH ×2 (09:42→16:25)
[2017-11-26] MEDS: RisperiDONE 3 MG TABLET PO SCH ×2 (09:43→16:26)
[2017-11-26] MEDS: DIVALPROEX SODIUM 500 MG DR TABLET PO SCH ×2 (09:43→16:26)
[2017-11-26] MEDS: GABAPENTIN 300 MG CAPSULE PO SCH ×3 (09:43→16:25)
[2017-11-26] MEDS: SERTRALINE HCL 50 MG TABLET PO SCH (09:43)
[2017-11-26 09:46] VITALS: BP 97/66
[2017-11-26] MEDS: LORazepam 2 MG TABLET PO PRN (13:49)
[2017-11-26 21:53] VITALS: BP 119/62
[2017-11-27] MEDS: RisperiDONE 3 MG TABLET PO SCH ×2 (08:01→16:39)
[2017-11-27] MEDS: SERTRALINE HCL 50 MG TABLET PO SCH (08:02)
[2017-11-27] MEDS: BENZTROPINE MESYLATE 1 MG TABLET PO SCH ×2 (08:02→16:39)
[2017-11-27] MEDS: DIVALPROEX SODIUM 500 MG DR TABLET PO SCH ×2 (08:02→16:40)
[2017-11-27] MEDS: GABAPENTIN 300 MG CAPSULE PO SCH ×3 (08:03→16:39)
[2017-11-27] MEDS: LORazepam 2 MG TABLET PO PRN ×2 (08:57→18:41)
[2017-11-27] MEDS: HALOPERIDOL 5 MG TABLET PO PRN ×2 (08:57→18:41)
[2017-11-27 09:28] VITALS: BP 131/88
[2017-11-27] MEDS: RisperiDONE MICROSPHERES 50 MG/2 ML SYRINGE IM SCH (09:50)
[2017-11-27 20:07] VITALS: BP 123/94
[2017-11-27] MEDS: ZOLPIDEM TARTRATE 10 MG TABLET PO PRN (20:29)
[2017-11-28] MEDS: DIVALPROEX SODIUM 500 MG DR TABLET PO SCH ×2 (09:53→17:09)
[2017-11-28] MEDS: SERTRALINE HCL 50 MG TABLET PO SCH (09:54)
[2017-11-28] MEDS: RisperiDONE 3 MG TABLET PO SCH ×2 (09:54→17:09)
[2017-11-28] MEDS: GABAPENTIN 300 MG CAPSULE PO SCH ×3 (09:54→17:09)
[2017-11-28] MEDS: BENZTROPINE MESYLATE 1 MG TABLET PO SCH ×2 (10:01→17:09)
[2017-11-28 10:22] VITALS: BP 136/77
[2017-11-28 17:04] VITALS: BP 97/61
[2017-11-29 08:00] VITALS: BP 125/75
[2017-11-29] MEDS: RisperiDONE 3 MG TABLET PO SCH ×2 (09:13→16:35)
[2017-11-29] MEDS: SERTRALINE HCL 50 MG TABLET PO SCH (09:13)
[2017-11-29] MEDS: BENZTROPINE MESYLATE 1 MG TABLET PO SCH ×2 (09:13→16:35)
[2017-11-29] MEDS: DIVALPROEX SODIUM 500 MG DR TABLET PO SCH ×2 (09:13→16:35)
[2017-11-29] MEDS: GABAPENTIN 300 MG CAPSULE PO SCH ×3 (09:13→16:35)
[2017-11-29 20:15] VITALS: BP 118/89
[2017-11-30 08:00] VITALS: BP 120/84
[2017-11-30] MEDS: BENZTROPINE MESYLATE 1 MG TABLET PO SCH ×2 (08:57→17:55)
[2017-11-30] MEDS: LORazepam 2 MG TABLET PO PRN (08:57)
[2017-11-30] MEDS: HALOPERIDOL 5 MG TABLET PO PRN (08:57)
[2017-11-30] MEDS: DIVALPROEX SODIUM 500 MG DR TABLET PO SCH ×2 (08:57→17:55)
[2017-11-30] MEDS: GABAPENTIN 300 MG CAPSULE PO SCH ×3 (08:57→17:55)
[2017-11-30] MEDS: SERTRALINE HCL 50 MG TABLET PO SCH (08:57)
[2017-11-30] MEDS: RisperiDONE 3 MG TABLET PO SCH ×2 (08:57→17:55)
[2017-11-30 18:51] VITALS: BP 120/87
[2017-12-01 09:00] VITALS: BP 102/60
[2017-12-01] MEDS: BENZTROPINE MESYLATE 1 MG TABLET PO SCH ×2 (09:02→16:19)
[2017-12-01] MEDS: DIVALPROEX SODIUM 500 MG DR TABLET PO SCH ×2 (09:02→16:19)
[2017-12-01] MEDS: SERTRALINE HCL 50 MG TABLET PO SCH (09:02)
[2017-12-01] MEDS: GABAPENTIN 300 MG CAPSULE PO SCH ×3 (09:02→16:19)
[2017-12-01] MEDS: RisperiDONE 3 MG TABLET PO SCH ×2 (09:02→16:19)
[2017-12-01] MEDS: LORazepam 2 MG TABLET PO PRN ×2 (10:50→16:20)
[2017-12-01] MEDS: HALOPERIDOL 5 MG TABLET PO PRN ×2 (10:50→16:20)
[2017-12-01 19:25] VITALS: BP 112/76
[2017-12-02] MEDS: GABAPENTIN 300 MG CAPSULE PO SCH ×3 (09:06→17:30)
[2017-12-02] MEDS: DIVALPROEX SODIUM 500 MG DR TABLET PO SCH ×2 (09:06→17:30)
[2017-12-02] MEDS: RisperiDONE 3 MG TABLET PO SCH ×2 (09:06→17:30)
[2017-12-02] MEDS: SERTRALINE HCL 50 MG TABLET PO SCH (09:06)
[2017-12-02] MEDS: BENZTROPINE MESYLATE 1 MG TABLET PO SCH ×2 (09:06→17:30)
[2017-12-02 10:20] VITALS: BP 106/61
[2017-12-02 20:03] VITALS: BP 110/66
[2017-12-03] MEDS: GuaiFENesin [SUGAR-FREE] 200 MG/10 ML SOLUTION UDCUP PO PRN ×2 (05:10→20:51)
[2017-12-03 05:34] VITALS: BP 119/90
[2017-12-03] MEDS: BENZTROPINE MESYLATE 1 MG TABLET PO SCH ×2 (09:03→17:21)
[2017-12-03] MEDS: GABAPENTIN 300 MG CAPSULE PO SCH ×3 (09:03→17:22)
[2017-12-03] MEDS: RisperiDONE 3 MG TABLET PO SCH ×2 (09:03→17:21)
[2017-12-03] MEDS: DIVALPROEX SODIUM 500 MG DR TABLET PO SCH ×2 (09:04→17:21)
[2017-12-03] MEDS: SERTRALINE HCL 50 MG TABLET PO SCH (09:04)
[2017-12-03 09:30] VITALS: BP 120/89
[2017-12-03 16:40] VITALS: BP 107/75
[2017-12-04] MEDS: RisperiDONE 3 MG TABLET PO SCH ×2 (08:23→17:47)
[2017-12-04] MEDS: DIVALPROEX SODIUM 500 MG DR TABLET PO SCH ×2 (08:23→17:47)
[2017-12-04] MEDS: GABAPENTIN 300 MG CAPSULE PO SCH ×3 (08:23→17:47)
[2017-12-04] MEDS: BENZTROPINE MESYLATE 1 MG TABLET PO SCH ×2 (08:23→17:47)
[2017-12-04] MEDS: SERTRALINE HCL 50 MG TABLET PO SCH (08:23)
[2017-12-04] MEDS: HALOPERIDOL 5 MG TABLET PO PRN ×2 (09:03→20:14)
[2017-12-04] MEDS: LORazepam 2 MG TABLET PO PRN ×2 (09:03→20:14)
[2017-12-04 09:51] VITALS: BP 116/71
[2017-12-04 16:51] VITALS: BP_SYST 108; BP_SYST 94; BP_DIAS 61; BP_DIAS 64
[2017-12-05] MEDS: GABAPENTIN 300 MG CAPSULE PO SCH ×3 (08:55→17:21)
[2017-12-05] MEDS: DIVALPROEX SODIUM 500 MG DR TABLET PO SCH ×2 (08:55→17:21)
[2017-12-05] MEDS: RisperiDONE 3 MG TABLET PO SCH ×2 (08:56→17:21)
[2017-12-05] MEDS: BENZTROPINE MESYLATE 1 MG TABLET PO SCH ×2 (08:56→17:21)
[2017-12-05] MEDS: SERTRALINE HCL 50 MG TABLET PO SCH (08:56)
[2017-12-05 09:00] VITALS: BP 101/70
[2017-12-05] MEDS: LORazepam 2 MG TABLET PO PRN ×2 (11:51→17:23)
[2017-12-05] MEDS: HALOPERIDOL 5 MG TABLET PO PRN (11:51)
[2017-12-05 16:52] VITALS: BP 106/60
[2017-12-06 08:30] VITALS: BP 132/79
[2017-12-06] MEDS: DIVALPROEX SODIUM 500 MG DR TABLET PO SCH ×2 (09:53→16:36)
[2017-12-06] MEDS: BENZTROPINE MESYLATE 1 MG TABLET PO SCH ×2 (09:53→16:36)
[2017-12-06] MEDS: RisperiDONE 3 MG TABLET PO SCH ×2 (09:53→16:36)
[2017-12-06] MEDS: GABAPENTIN 300 MG CAPSULE PO SCH ×3 (09:53→16:36)
[2017-12-06] MEDS: SERTRALINE HCL 50 MG TABLET PO SCH (09:53)
[2017-12-06] MEDS: HALOPERIDOL 5 MG TABLET PO PRN (12:24)
[2017-12-06] MEDS: LORazepam 2 MG TABLET PO PRN (12:24)
[2017-12-07 08:00] VITALS: BP 120/70
[2017-12-07] MEDS: HALOPERIDOL 5 MG TABLET PO PRN ×2 (08:53→19:56)
[2017-12-07] MEDS: LORazepam 2 MG TABLET PO PRN (08:58)
[2017-12-07] MEDS: SERTRALINE HCL 50 MG TABLET PO SCH (08:58)
[2017-12-07] MEDS: BENZTROPINE MESYLATE 1 MG TABLET PO SCH ×2 (08:58→17:13)
[2017-12-07] MEDS: GABAPENTIN 300 MG CAPSULE PO SCH ×3 (08:58→17:13)
[2017-12-07] MEDS: DIVALPROEX SODIUM 500 MG DR TABLET PO SCH ×2 (08:58→17:13)
[2017-12-07] MEDS: RisperiDONE 3 MG TABLET PO SCH ×2 (08:58→17:13)
[2017-12-07] MEDS: ONDANSETRON HCL 4 MG TABLET PO PRN (13:26)
[2017-12-07 16:51] VITALS: BP 108/73
[2017-12-08] MEDS: GABAPENTIN 300 MG CAPSULE PO SCH ×4 (10:07→17:24)
[2017-12-08] MEDS: RisperiDONE 3 MG TABLET PO SCH ×2 (10:07→17:24)
[2017-12-08] MEDS: BENZTROPINE MESYLATE 1 MG TABLET PO SCH ×2 (10:07→17:24)
[2017-12-08] MEDS: SERTRALINE HCL 50 MG TABLET PO SCH (10:07)
[2017-12-08] MEDS: DIVALPROEX SODIUM 500 MG DR TABLET PO SCH ×2 (10:07→17:24)
[2017-12-08] MEDS: LORazepam 2 MG TABLET PO PRN (11:03)
[2017-12-08] MEDS: HALOPERIDOL 5 MG TABLET PO PRN (11:03)
[2017-12-08] MEDS: GuaiFENesin [SUGAR-FREE] 200 MG/10 ML SOLUTION UDCUP PO PRN (11:35)
[2017-12-08 13:21] VITALS: BP 124/93
[2017-12-08 17:34] VITALS: BP 126/81
[2017-12-09] MEDS: GuaiFENesin [SUGAR-FREE] 200 MG/10 ML SOLUTION UDCUP PO PRN ×3 (04:21→17:53)
[2017-12-09 06:13] VITALS: BP 115/71
[2017-12-09 08:00] VITALS: BP 104/59
[2017-12-09] MEDS: BENZTROPINE MESYLATE 1 MG TABLET PO SCH ×2 (08:13→16:16)
[2017-12-09] MEDS: ONDANSETRON HCL 4 MG TABLET PO PRN (08:13)
[2017-12-09] MEDS: SERTRALINE HCL 50 MG TABLET PO SCH (08:13)
[2017-12-09] MEDS: DIVALPROEX SODIUM 500 MG DR TABLET PO SCH ×2 (08:13→16:16)
[2017-12-09] MEDS: GABAPENTIN 300 MG CAPSULE PO SCH ×3 (08:13→16:15)
[2017-12-09] MEDS: LORazepam 2 MG TABLET PO PRN (08:13)
[2017-12-09] MEDS: RisperiDONE 3 MG TABLET PO SCH ×2 (08:14→16:16)
[2017-12-09] MEDS: HALOPERIDOL 5 MG TABLET PO PRN (09:47)
[2017-12-09 17:00] VITALS: BP 124/78
[2017-12-10 08:00] VITALS: BP 103/70
[2017-12-10] MEDS: GuaiFENesin [SUGAR-FREE] 200 MG/10 ML SOLUTION UDCUP PO PRN ×2 (09:06→09:07)
[2017-12-10] MEDS: LORazepam 2 MG TABLET PO PRN ×2 (09:07→17:01)
[2017-12-10] MEDS: HALOPERIDOL 5 MG TABLET PO PRN ×2 (09:07→20:23)
[2017-12-10] MEDS: SERTRALINE HCL 50 MG TABLET PO SCH (09:15)
[2017-12-10] MEDS: DIVALPROEX SODIUM 500 MG DR TABLET PO SCH ×2 (09:15→17:01)
[2017-12-10] MEDS: RisperiDONE 3 MG TABLET PO SCH ×2 (09:15→17:01)
[2017-12-10] MEDS: BENZTROPINE MESYLATE 1 MG TABLET PO SCH ×2 (09:15→17:01)
[2017-12-10] MEDS: GABAPENTIN 300 MG CAPSULE PO SCH ×3 (09:15→17:01)
[2017-12-10 17:12] VITALS: BP 107/66
[2017-12-11 08:30] VITALS: BP 109/67
[2017-12-11] MEDS: DIVALPROEX SODIUM 500 MG DR TABLET PO SCH ×2 (08:45→17:14)
[2017-12-11] MEDS: GABAPENTIN 300 MG CAPSULE PO SCH ×3 (08:45→17:15)
[2017-12-11] MEDS: BENZTROPINE MESYLATE 1 MG TABLET PO SCH ×2 (08:45→17:14)
[2017-12-11] MEDS: RisperiDONE 3 MG TABLET PO SCH ×2 (08:46→17:14)
[2017-12-11] MEDS: SERTRALINE HCL 50 MG TABLET PO SCH (08:46)
[2017-12-11] MEDS: RisperiDONE MICROSPHERES 50 MG/2 ML SYRINGE IM SCH (08:46)
[2017-12-11 16:53] VITALS: BP 99/60
[2017-12-11] MEDS: LORazepam 2 MG TABLET PO PRN (20:24)
[2017-12-11] MEDS: HALOPERIDOL 5 MG TABLET PO PRN (20:24)
[2017-12-11] MEDS: ZOLPIDEM TARTRATE 10 MG TABLET PO PRN (20:25)
[2017-12-12 08:00] VITALS: BP 121/74
[2017-12-12] MEDS: DIVALPROEX SODIUM 500 MG DR TABLET PO SCH ×2 (10:22→17:54)
[2017-12-12] MEDS: SERTRALINE HCL 50 MG TABLET PO SCH (10:22)
[2017-12-12] MEDS: GABAPENTIN 300 MG CAPSULE PO SCH ×3 (10:22→17:54)
[2017-12-12] MEDS: RisperiDONE 3 MG TABLET PO SCH ×2 (10:22→17:54)
[2017-12-12] MEDS: BENZTROPINE MESYLATE 1 MG TABLET PO SCH ×2 (10:22→17:54)
[2017-12-12 17:02] VITALS: BP 108/65
[2017-12-12] MEDS: LORazepam 2 MG TABLET PO PRN (19:19)
[2017-12-13 08:10] VITALS: BP 131/60
[2017-12-13] MEDS: RisperiDONE 3 MG TABLET PO SCH ×2 (10:09→16:23)
[2017-12-13] MEDS: BENZTROPINE MESYLATE 1 MG TABLET PO SCH ×2 (10:09→16:23)
[2017-12-13] MEDS: GABAPENTIN 300 MG CAPSULE PO SCH ×3 (10:09→16:23)
[2017-12-13] MEDS: DIVALPROEX SODIUM 500 MG DR TABLET PO SCH ×2 (10:10→16:23)
[2017-12-13] MEDS: SERTRALINE HCL 50 MG TABLET PO SCH (10:10)
[2017-12-13] MEDS: HALOPERIDOL 5 MG TABLET PO PRN (16:23)
[2017-12-13 16:47] VITALS: BP 113/76
[2017-12-14 09:22] VITALS: BP 107/75
[2017-12-14] MEDS: SERTRALINE HCL 50 MG TABLET PO SCH (10:03)
[2017-12-14] MEDS: RisperiDONE 3 MG TABLET PO SCH (10:03)
[2017-12-14] MEDS: BENZTROPINE MESYLATE 1 MG TABLET PO SCH (10:03)
[2017-12-14] MEDS: GABAPENTIN 300 MG CAPSULE PO SCH ×2 (10:03→12:20)
[2017-12-14] MEDS: DIVALPROEX SODIUM 500 MG DR TABLET PO SCH (10:03)
[2017-12-14] MEDS ORDERED: SERT50TA12 PO (12:17)
[2017-12-14] MEDS ORDERED: RISPC50 IM (12:18)
== END 2017-12-14 14:30 | disposition home or self-care (01) | DRG 750 ==
LOC: EMS 21:58 → 3EI 11-04 18:51
PROVIDERS: ADMIT Psychiatry & Neurology Psychiatry; ATTEND Psychiatry & Neurology Psychiatry
DX: F20.0 Paranoid schizophrenia (principal); R45.851 Suicidal ideations; E55.9 Vitamin D deficiency, unspecified; E78.5 Hyperlipidemia, unspecified; E78.1 Pure hyperglyceridemia; F84.0 Autistic disorder; Z79.899 Other long term (current) drug therapy; R45.87 Impulsiveness
CPT/HCPCS: 87081; 99285; G0480; J2794; Q0162

== ENCOUNTER 2025-01-22 16:56 | Emergency (ER) | payer MEDICAID, OTHER ==
[~2025-01-22] VITALS: Ht 170.2 cm; Wt 95.0 kg
[~2025-01-22 16:56] MED LIST changes: +BENZ-247 PO; -BENZ1TAB10 PO; +DIVA-112 PO; -DIVA500T35 PO; +GABA-1181 PO; -GABA-531 PO; -HALO5 PO; -RISP.5 PO; +RISP3TAB35 PO; +RISPC50 IM; +SERT-158 PO
[2025-01-22 17:04] VITALS: BP 118/79; PULSE 99; RESP 18; TEMP 98.4; O2SAT 96
[2025-01-22 18:01] LABS: COVID AG,FIA SOURCE NASAL SWAB
[2025-01-22 18:14] LABS: RAPID GROUP A STREP NEGATIVE (NEGATIVE)
[2025-01-22 18:22] LABS: INFLUENZA TYPE A NEGATIVE FOR TYPE A (NEGATIVE); INFLUENZA TYPE B NEGATIVE FOR TYPE B (NEGATIVE); SARS-COV2 (COVID) ANTIGEN,FIA Negative (Negative)
[2025-01-22] MEDS ORDERED: LORA10TA7 PO (18:33)
[2025-01-22] MEDS ORDERED: ATOR40TA71 PO (18:33)
[2025-01-22] MEDS ORDERED: ACET-66 PO ×2 (18:33→19:03)
[2025-01-22] MEDS ORDERED: ALBU18HF12 PUFF (18:33)
[2025-01-22] MEDS ORDERED: QUET300T2 PO (18:36)
[2025-01-22] MEDS ORDERED: DICL100G60 TP (18:36)
[2025-01-22] MEDS ORDERED: GUAIFDM PO (19:03)
[2025-01-22] MEDS: ACETAMINOPHEN 500 MG TABLET PO ONE (19:12)
== END 2025-01-22 19:32 | disposition home or self-care (01) ==
LOC: EMS 16:57
DX: B34.9 Viral infection, unspecified (principal); J06.9 Acute upper respiratory infection, unspecified; F25.9 Schizoaffective disorder, unspecified; F32.A Depression, unspecified; Z79.899 Other long term (current) drug therapy; Z20.822 Contact with and (suspected) exposure to COVID-19
CPT/HCPCS: 87430; 87804; 99283